=== PATIENT | male | born 1965 | race Asian ===

== ENCOUNTER 2021-04-01 09:18 | Inpatient (IN) | payer OTHER ==
[~2021-04-01] VITALS: Ht 170.2 cm; Wt 47.2 kg
[2021-04-01] VITALS (18 sets, daily range): BP systolic 89–129; BP diastolic 53–91
[2021-04-01] MEDS ORDERED: ONDANSETRON HCL 4MG/2ML INJ IV ONE (10:15)
[2021-04-01] MEDS ORDERED: HYDROMORPHONE HCL/PF 2MG/ML CPJ IV ONE (10:15)
[2021-04-01] MEDS ORDERED: DEXAMETHASONE 10 MG/ML VIAL IV ONE (10:15)
[2021-04-01 10:55] LABS: CHLORIDE 87 mEq/L (98-107)
[2021-04-01 10:59] LABS: ETHANOL BLOOD < 10 mg/dL
[2021-04-01 11:07] LABS: CREATINE KINASE 78 IU/L (39-308)
[2021-04-01 11:30] LABS: PROTHROMBIN TIME 11.1 sec (9.6-11.0)
[2021-04-01 12:02] LABS: MEAN CORPUSCULAR VOLUME 93.2 fL (80.0-94.0); MEAN PLATELET VOLUME 6.5 fl (7.4-10.4); PLATELET 79 x1000/uL (130-400); RED BLOOD CELL COUNT 3.11 mill/uL (4.7-6.1); RED CELL DISTRIBUTION WIDTH 16.8 % (11.6-14.6)
[2021-04-01 12:06] LABS: MEAN CORPUSCULAR HEMOGLOBIN 34.4 pg (28.0-32.0)
[2021-04-01 12:09] LABS: HEMOGLOBIN. 10.7 g/dL (14.0-18.0)
[2021-04-01] MEDS ORDERED: GADOTERATE MEGLUMINE 5 MMOL/10 ML VIAL IV ONE (13:04)
[2021-04-01 13:05] LABS: PLATELET ESTIMATE DECREASED
[2021-04-01 16:08] LABS: CLARITY URINE CLEAR (CLEAR); COLOR URINE YELLOW (YELLOW); KETONES URINE TRACE (NEGATIVE); LEUKOCYTE ESTERASE URINE NEGATIVE (NEGATIVE); NITRITE URINE NEGATIVE (NEGATIVE); OCCULT BLOOD URINE NEGATIVE (NEGATIVE); PROTEIN URINE NEGATIVE (NEGATIVE); UROBILINOGEN URINE 0.2 E.U./dL (0.2-1.0)
[2021-04-01 16:21] LABS: *AMPHETAMINES SCREEN URINE NEGATIVE (NEGATIVE); *BARBITURATES SCREEN URINE NEGATIVE (NEGATIVE); *BENZODIAZEPINES SCREEN URINE NEGATIVE (NEGATIVE); *COCAINE SCREEN URINE NEGATIVE (NEGATIVE); METHADONE URINE SCREEN NEGATIVE (NEGATIVE); OPIATES URINE SCREEN PRESUMTIVE POSITIVE (NEGATIVE); PHENCYCLIDINE URINE SCREEN NEGATIVE (NEGATIVE)
[2021-04-01 16:22] LABS: CANNABINOID URINE SCREEN NEGATIVE (NEGATIVE)
[2021-04-01] MEDS ORDERED: DIPHENHYDRAMINE 50MG/ML VIAL IV PRN (17:00)
[2021-04-01] MEDS ORDERED: ONDANSETRON HCL 4MG/2ML INJ IV PRN (17:00)
[2021-04-01] MEDS ORDERED: IPRATROPIUM/ALBUTEROL 0.5-3(2.5)MG/3ML NEB HHN PRN (17:00)
[2021-04-01] MEDS ORDERED: ZOLPIDEM TARTRATE 5MG TABLET PO PRN (17:00)
[2021-04-01] MEDS ORDERED: GUAIFENESIN 200MG/10ML SUGAR FREE UDC PO PRN (17:00)
[2021-04-01] MEDS ORDERED: MAGNESIUM/ALUMINUM HYDROXIDE/SIMETHICONE 30ML UDC PO PRN (17:00)
[2021-04-01] MEDS ORDERED: MAGNESIUM HYDROXIDE 400MG/5ML 30ML UDC PO PRN (17:00)
[2021-04-01] MEDS ORDERED: CLONIDINE 0.1MG TABLET PO PRN (17:00)
[2021-04-01] MEDS ORDERED: HYDROMORPHONE HCL/PF 2MG/ML CPJ IV PRN (17:00)
[2021-04-01] MEDS ORDERED: ACETAMINOPHEN 325MG TABLET PO PRN ×2 (17:00)
[2021-04-01] MEDS ORDERED: SODIUM CHLORIDE 0.9% 1,000 ML IV ONE (17:30)
[2021-04-01] MEDS ORDERED: NICARDIPINE 100 MG in SODIUM CHLORIDE 0.9% 60 ML IV PRN (20:00)
[2021-04-01] MEDS: LEVETIRACETAM 500MG PREMIX 100 ML IV SCH (21:17)
[2021-04-02] VITALS (75 sets, daily range): BP systolic 81–151; BP diastolic 44–92
[2021-04-02] MEDS: DEXAMETHASONE 4MG/ML 1ML VIAL IV SCH ×2 (00:43→06:17)
[2021-04-02 04:32] LABS: HEMATOCRIT. 25.5 % (42.0-52.0); HEMOGLOBIN. 9.2 g/dL (14.0-18.0); MEAN CORPUSCULAR HEMOGLOBIN 33.9 pg (28.0-32.0); MEAN PLATELET VOLUME 6.6 fl (7.4-10.4); PLATELET 67 x1000/uL (130-400); RED BLOOD CELL COUNT 2.71 mill/uL (4.7-6.1); RED CELL DISTRIBUTION WIDTH 16.8 % (11.6-14.6)
[2021-04-02 04:36] LABS: CHLORIDE 93 mEq/L (98-107)
[2021-04-02 04:43] LABS: PHOSPHORUS 3.5 mg/dL (2.5-4.9)
[2021-04-02] MEDS: DEXAMETHASONE 10 MG/ML VIAL IV SCH (08:26)
[2021-04-02] MEDS: PANTOPRAZOLE SODIUM 40 MG/VIAL IV SCH (08:26)
[2021-04-02] MEDS: LEVETIRACETAM 500MG PREMIX 100 ML IV SCH ×2 (08:26→20:59)
[2021-04-02 10:27] LABS: BG BASE EXCESS -4.2 mmol/L (-2.0-2.0); BG CARBOXYHEMOGLOBIN 0.3 % (0.5-1.5); BG DEOXYHEMOGLOBIN 2.4 % (0.0-5.0); BG FRACTION INSPIRED OXYGEN 21; BG HCO3 ACT 18.2 mmol/L (22.0-26.0); BG METHEMOGLOBIN 0.3 % (0.0-1.5); BG OXYGEN SATURATION 97.6 % (92.0-98.5); BG PCO2 24.7 mmHg (35.0-45.0); BG PH 7.486 (7.350-7.450); BG PO2 100.2 mmHg (75.0-100.0); BG SAMPLE SITE RIGHT RADIAL; BG TOTAL HEMOGLOBIN 9.1 g/dL (12.0-18.0); BG VENT MODE ROOM AIR
[2021-04-02 10:28] LABS: NUCLEATED RED BLOOD CELLS 2 /100 WBC
[2021-04-02 10:29] LABS: PLATELET ESTIMATE DECREASED
[2021-04-03] VITALS (39 sets, daily range): BP systolic 105–139; BP diastolic 62–85
[2021-04-03 05:47] LABS: HEMATOCRIT. 22.7 % (42.0-52.0); HEMOGLOBIN. 8.1 g/dL (14.0-18.0); MEAN CORPUSCULAR HEMOGLOBIN 33.2 pg (28.0-32.0); MEAN CORPUSCULAR VOLUME 92.7 fL (80.0-94.0); MEAN PLATELET VOLUME 6.1 fl (7.4-10.4); PLATELET 56 x1000/uL (130-400); RED BLOOD CELL COUNT 2.45 mill/uL (4.7-6.1); RED CELL DISTRIBUTION WIDTH 16.6 % (11.6-14.6)
[2021-04-03 05:59] LABS: CHLORIDE 93 mEq/L (98-107)
[2021-04-03] MEDS: DEXAMETHASONE 10 MG/ML VIAL IV SCH (08:01)
[2021-04-03] MEDS: LEVETIRACETAM 500MG PREMIX 100 ML IV SCH (08:01)
[2021-04-03] MEDS: PANTOPRAZOLE SODIUM 40 MG/VIAL IV SCH (08:02)
[2021-04-03 10:43] LABS: PLATELET ESTIMATE MARKEDLY DECREASED
== END 2021-04-03 12:10 | disposition left against medical advice (07) | DRG 54 ==
LOC: ER 09:25 → MICUSO 12:55 → EDBEDREQ 13:04 → EDBEDREQTM 13:04 → ENRESERV 14:23
PROVIDERS: ADMIT Internal Medicine; ATTEND Internal Medicine
DX: C79.31 Secondary malignant neoplasm of brain (principal); G93.41 Metabolic encephalopathy; C34.90 Malignant neoplasm of unspecified part of unspecified bronchus or lung; D61.818 Other pancytopenia; E87.1 Hypo-osmolality and hyponatremia; J84.9 Interstitial pulmonary disease, unspecified; Z53.29 Procedure and treatment not carried out because of patient's decision for other reasons; R74.01 Elevation of levels of liver transaminase levels; Z66 Do not resuscitate; Z20.822 Contact with and (suspected) exposure to COVID-19; E87.6 Hypokalemia; I25.10 Atherosclerotic heart disease of native coronary artery without angina pectoris; Z86.73 Personal history of transient ischemic attack (TIA), and cerebral infarction without residual deficits; Z92.21 Personal history of antineoplastic chemotherapy; Z92.3 Personal history of irradiation; Z95.2 Presence of prosthetic heart valve; Z95.5 Presence of coronary angioplasty implant and graft; Z95.828 Presence of other vascular implants and grafts
CPT/HCPCS: 36415; 36600; 70553; 71045; 71250; 80048; 80053; 80305; 80320; 81003; 82140; 82375; 82550; 82805; 83605; 83735; 84100; 84145; 84484; 85025; 87426; 93005; 93970; 99291; A9577; C1893; C9113; J1100; J1170; J1200; J1953; J2405; G0480